=== PATIENT | male | born 1965 | race American Indian/Alaskan Native ===

== ENCOUNTER 2020-10-04 05:45 | Day surgery (SDC) | payer BC ==
[2020-10-04] MEDS ORDERED: LACTATED RINGERS 1,000 ML IV SCH (06:00)
[2020-10-04] MEDS ORDERED: MIDAZOLAM 2 MG/2 ML INJ IV NR (06:00)
[2020-10-04] MEDS ORDERED: BACTERIOSTATIC SODIUM CHLORIDE 0.9% 30 ML VIAL INFILTRATI ONE (06:19)
--- NOTE | 2020-10-04 07:02 | Anesthesia Consultation ---
Anesthesia Consult and Med Hx Date of service: 10/04/20 - Airway Anesthetic Teeth Evaluation: Good ROM Head & Neck: Adequate Mental/Hyoid Distance: Adequate Mallampati Class: Class II Intubation Access Assessment: Good - Pulmonary Exam CTA: Yes - Cardiac Exam Cardiac Exam: RRR - Pre-Operative Health Status ASA Pre-Surgery Classification: ASA2 Proposed Anesthetic Plan: General - Cardiovascular System Hx Hypertension: Yes - Central Nervous System Hx Psychiatric Problems: No - Other Systems Hx Alcohol Use: Yes (Occas) Hx Cancer: No
--- NOTE | 2020-10-04 07:02 | Anesthesia Day of Surgery ---
Anesthesia Day of Surgery - Day of Surgery Patient Examined: Yes Patient H&P Reviewed: Yes Patient is NPO: Yes
[2020-10-04] MEDS ORDERED: ceFAZolin/STERILE WATER 2 GM/20 ML SYRINGE IV NR (07:05)
[2020-10-04] MEDS ORDERED: BUPIVACAINE/PF (0.25%) 2.5 MG/ML 30 ML VIAL INFILTRATI ONE (07:07)
[2020-10-04] MEDS ORDERED: NEOMY 3.5 MG/BACIT 400 UNITS/POLY B 5000 UNITS OINT 15 GM TP ONE (07:07)
[2020-10-04] MEDS ORDERED: LIDOCAINE MPF (2%) 20 MG/1 ML VIAL 5 ML ONE (07:13)
[2020-10-04] MEDS ORDERED: flumazeniL 0.5 MG/5 ML INJ IV ONE (07:13)
[2020-10-04] MEDS ORDERED: propofoL 200 MG/20 ML VIAL IV ONE (07:14)
[2020-10-04] MEDS ORDERED: fentaNYL 100 MCG/2 ML INJ ONE (07:15)
[2020-10-04] MEDS ORDERED: ONDANSETRON 4 MG/2 ML INJ IV PRN (07:18)
[2020-10-04] MEDS ORDERED: HYDROmorphone 1 MG/1 ML INJ IV PRN (07:18)
[2020-10-04] MEDS ORDERED: SODIUM CHLORIDE 0.9% IRR 1,500 ML BOTTLE IR ONE (08:07)
[2020-10-04] MEDS ORDERED: HYDROmorphone 1 MG/1 ML INJ ONE (08:20)
--- NOTE | 2020-10-04 08:39 | Short Stay Summary ---
Short Stay Documentation Date of service: 10/04/20 - History H&P: obtained from office - Allergies and Medications Current Medications: Allergies No Known Allergies Allergy (Unverified 09/28/20 09:54) Home Medications Medication Instructions Recorded Confirmed Last Taken Type Amlodipine Besylate/Benazepril 1 tab PO DAILY 01/27/14 10/04/20 10/04/20 05:15 History [Lotrel 10-40 mg] metFORMIN [Glucophage] 500 mg PO BID 09/28/20 10/04/20 10/03/20 History Active Medications Cefazolin Sodium (Cefazolin/Sterile Water 2 Gm/20 Ml Syringe) 2 gm IV PREOP NR Stop: 10/04/20 23:00 Hydromorphone HCl (Hydromorphone 1 Mg/1 Ml Inj) 0.5 mg IV Q10MIN PRN PRN Reason: Pain , Severe (7-10) Stop: 10/04/20 20:00 Lactated Ringer's (Lactated Ringers) 1,000 mls @ 100 mls/hr IV DIRECT CRYSTAL Stop: 10/04/20 23:59 Last Admin: 10/04/20 06:35 Dose: 100 mls/hr Documented by: Midazolam HCl (Midazolam 2 Mg/2 Ml Inj) 2 mg IV PREOP NR Stop: 10/04/20 23:00 Last Admin: 10/04/20 07:00 Dose: 2 mg Documented by: Ondansetron HCl (Ondansetron 4 Mg/2 Ml Inj) 4 mg IV ONCE PRN PRN Reason: Nausea And Vomiting Stop: 10/04/20 12:00 - Brief post op/procedure progress note Date of procedure: 10/04/20 Pre-op diagnosis: phimosis Post-op diagnosis: same Procedure: circ Anesthesia: GETA Surgeon: LENIN VELASQUEZ Estimated blood loss: minimal Pathology: list Specimen disposition: to lab Condition: stable - Hospital course Hospital course: penelopeco on chart - Disposition Condition at discharge: Stable Disposition: - TO HOME OR SELFCARE Short Stay Discharge Plan Follow up with: CARLOS ALDRIDGE MD [Primary Care Provider] - 7 Days
--- NOTE | 2020-10-04 08:50 | Operative Report ---
PREOPERATIVE DIAGNOSIS: Phimosis. POSTOPERATIVE DIAGNOSIS: Phimosis. PROCEDURE: Circumcision. SURGEON: Brandon Moya MD ANESTHESIA: General. ESTIMATED BLOOD LOSS: Minimal. FLUIDS: Crystalloid. COMPLICATIONS: No complications. INDICATIONS: This 55-year-old gentleman seen in the office with a history of recurrent phimosis, borderline diabetes. Exam was consistent with phimosis. We discussed options. He agreed to proceed with surgical intervention. His primary care is Dr. Edwin Butt. DESCRIPTION OF PROCEDURE: The patient was taken to the operative suite, placed in a supine position. After adequate general anesthesia, he was prepped and draped in a sterile fashion. Foreskin was marked at the level of the coronal ridge. Dorsal and ventral slit was made. Foreskin was circumferentially removed and sent for routine pathologic evaluation. Proximal shaft skin was retracted. Adequate hemostasis was achieved. Proximal and distal shaft skin was reapproximated and closed with 3-0 chromic in interrupted fashion. Xeroform gauze, Kerlix and Coban was placed on the penis as a dressing. The patient tolerated the procedure well, was extubated and taken to recovery room. He will go home on [place] and follow up in the office. JOB# [id number] NEIL/SINDI
[2020-10-04 10:01] VITALS: BP 121/75
--- NOTE | 2020-10-04 10:57 | Post Anesthesia Evaluation ---
- Post Anesthesia Evaluation Patient Participated: Yes Airway Patent: Yes Stable Respiratory Function: Yes Nausea/Vomiting: No Temp > 96.8F: Yes Pain Manageable: Yes Adequeate Hydration: Yes Anesthesia Complications: No
== END 2020-10-04 05:46 | disposition home or self-care (01) ==
LOC: OR 05:45
PROVIDERS: ATTEND Urology
DX: N47.1 Phimosis (principal); I10 Essential (primary) hypertension; Z79.899 Other long term (current) drug therapy; Z79.84 Long term (current) use of oral hypoglycemic drugs; Z72.89 Other problems related to lifestyle; Z98.890 Other specified postprocedural states
CPT/HCPCS: 54161; 82962; 88304; A6250; J0690; J1170; J2250; J2704; J3010; J7120